=== PATIENT | male | born 2005 | race Hispanic/Latino ===

== ENCOUNTER 2024-11-03 22:49 | Emergency (ER) | payer SELFPAY ==
[2024-11-04] MEDS ORDERED: Naproxen 500 MG TAB ONE (01:43)
== END 2024-11-04 01:18 | disposition home or self-care (01) ==
LOC: CSHERS 22:49
DX: S46.911A Strain of unspecified muscle, fascia and tendon at shoulder and upper arm level, right arm, initial encounter (principal); X50.0XXA Overexertion from strenuous movement or load, initial encounter
CPT/HCPCS: 99283